=== PATIENT | male | born 1975 | race Hispanic/Latino ===

== ENCOUNTER 2018-04-22 08:11 | Emergency (ER) | payer SELFPAY ==
[2018-04-22] MEDS ORDERED: Ketorolac Tromethamine 60 MG/2 ML VIAL ONE (08:32)
--- NOTE | 2018-04-22 09:17 | RAD ---
PA AND LATERAL VIEWS CHEST: Date: 04/22/18 HISTORY: Chest pain. FINDINGS: Comparison made with exam of 11/06/11. The heart size is enlarged. Lungs are well expanded without focal areas of consolidation, pneumothora x, sachin pulmonary edema, or pleural effusions. There are mild degenerative changes of the spine. IMPRESSION: No acute process. POS: DYANH
== END 2018-04-22 09:14 | disposition home or self-care (01) ==
LOC: EDBD 08:11 → ERS 08:11
DX: M54.6 Pain in thoracic spine (principal)
CPT/HCPCS: 71046; 93005; 96372; J1885

== ENCOUNTER 2021-02-24 23:34 | Emergency (ER) | payer SELFPAY | END 2021-02-25 00:24 | disposition home or self-care (01) | LOC: ERS 23:34 | DX: Z00.00 Encounter for general adult medical examination without abnormal findings (principal) | CPT/HCPCS: 99282 ==